=== PATIENT | female | born 1945 | race Caucasian/White ===

== ENCOUNTER 2016-10-20 07:44 | Observation (INO) | payer OTHER ==
[~2016-10-20] VITALS: Ht 165.1 cm; Wt 122.5 kg
[2016-10-20] VITALS (8 sets, daily range): BP systolic 124–144; BP diastolic 47–84
--- NOTE | ~2016-10-20 | P ---
[facility] [place] [address] PROCEDURE REPORT Name: RAYMON MONZON Room #: 213-P [facility] Concepcion Rodriguez#: [id number] Admission: 10/20/16 Attend Phys: Enrique John MD Discharge: 10/22/16 Date of : 49 Report #: [id number] THIS REPORT FOR: //name// CC: Srinivas Lora MD [facility] Enrique John DATE OF SERVICE: 10/21/2016 BRIEF HISTORY: The patient is a 71-year-old woman who had recent cardiovascular intervention last week was stent placed who presents with abdominal pain and chest pain. She has been seen by Dr. Lora and he feels that her pain is GI in origin. It is noted she does use 12-16 ibuprofen per day for back pain. She has not had any bleeding and she is on anticoagulation antiplatelet therapy. PREOPERATIVE DIAGNOSIS: Atypical chest pain with the use of nonsteroidals. POSTOPERATIVE DIAGNOSES: 1. Moderate erosive gastritis, body of the stomach with a small amount of blood. 2. Diffuse erythematous gastritis. 3. Small hiatus hernia. 4. Mild Schatzki ring. MEDICATIONS: Deep sedation with propofol per anesthesia. SPECIMEN: None. ESTIMATED BLOOD LOSS: None. PROCEDURE: EGD. FINDINGS: Prior to deep sedation, procedure of upper endoscopy discussed with the patient as well potential risks and its complications. She indicates she understands and desires to proceed. DESCRIPTION OF PROCEDURE: With the patient in left lateral decubitus position, the Fuji video endoscope was inserted in the cervical esophagus under direct vision without difficulty. Examination of this entire length revealed normal esophageal mucosa down the squamocolumnar junction. At the squamocolumnar junction, intermittently, mild Schatzki ring was seen. The patient denies dysphagia. She is also anticoagulated and so dilation was not proceed today. There is no evidence of Quinones's esophagus ulcerations or mass lesions. Just be on the ring, a small 2 cm sliding type hiatus hernia was seen. Mucosa and hernia was normal. Scope was advanced in the stomach, which was examined on end view as well as retroflexed views. There was diffuse erythema [facility] [address] [place] [address] PROCEDURE REPORT Name: RAYMON MONZON Room #: 213-P [facility] Concepcion Rodriguez#: [id number] Admission: 10/20/16 Attend Phys: Enrique John MD Discharge: 10/22/16 Date of : 49 Report #: [id number] throughout the stomach. Most notably there were long erosive columns in the body of the stomach. True ulcers were not seen. She is anticoagulated. A couple of droplets of red blood was seen, but active bleeding was not seen. No clot exposed vessels were seen. Upon retroflexion, no mass lesions were seen in the cardia. Because of the coagulation, she was not biopsied today. The pylorus was normal. Duodenal bulb was normal. Postbulbar sweep was normal. No ulcers or blood was seen. At that point, the scope was slowly withdrawn and careful circumferential views confirmed the above findings. The patient tolerated the procedure well. DISPOSITION: The patient with atypical pain. I do not see ulcers, but she clearly has erosive changes. Nonsteroidals may be a factor. We will place her on pantoprazole 40 mg daily. I advised her to be conscious with use of nonsteroidals and to seek further evaluation and possible other remedies for management of her back pain. We will obtain serology for H. pylori as well. If she has complaints of dysphagia, she is to return at a later date for dilation. Also noted that LFTs were modestly elevated. We will recheck LFTs and also check and also check an ultrasound of the abdomen. <ELECTRONICALLY SIGNED> By: Jw Wells MD 10/26/16 0806 1135 2248 Jw Wells MD /nt
--- NOTE | ~2016-10-20 | 2DMMODE ---
[facility] [place] [address] 2 D/M-MODE ECHOCARDIOGRAM Name: RAYMON MONZON Room #: 213-P [facility] IN ..#: [id number] Admission: 10/20/16 Attend Phys: Trisha Burris Discharge: Date of : 49 Date of Service: 10/20/16 0944 Report #: [id number] THIS REPORT FOR: //name// Transthoracic Echocardiography Ordering physician: Connie Marcos Referring physician: Srinivas Hernandez Laura L. Room Designer: АННА Robert Indications/History: S/P PCI with STENT, Chest pain. BP: 124 / HR: 57bpm Height: 65in Weight: 271.4lb 52 Study data: M-mode, limited 2D, limited spectral Doppler, and color Doppler. Location: Bedside. Routine. Image quality was good. 2D measurements Normal Normal LVID ED 36-57 IVS ED 6-11 LVID ES 23-40 LVPW ED 6-11 LA volume index 16-28 AoRoot diam ED 21-37 LVOT diameter 18-23 Findings: Left ventricle: The cavity size was normal. Wall thickness was increased in a pattern of moderate LVH. Systolic function was hyperdynamic. The estimated ejection fraction was in the range of 65% to 70%. Wall motion was normal. Right ventricle: The cavity size was at the upper limits of normal. Systolic function was normal. Right atrium: The atrium was dilated. Left atrium: The atrium was dilated. Aortic valve: Trileaflet; mildly thickened, mildly calcified leaflets. Doppler: There was no stenosis. Mitral valve: Structurally normal valve. Doppler: There was no evidence for stenosis. Tricuspid valve: Structurally normal valve. Doppler: There was no evidence for stenosis. Moderate [facility] [address] [place] [address] 2 D/M-MODE ECHOCARDIOGRAM Name: RAYMON MONZON Room #: 213-P [facility] IN Jennifer#: [id number] Admission: 10/20/16 Attend Phys: Trisha Burris Discharge: Date of : 49 Date of Service: 10/20/16 0944 Report #: [id number] regurgitation. Regurgitant peak velocity: 434cm/s. Peak RV-RA gradient: 75mm Hg (S). Pulmonic valve: Structurally normal valve. Doppler: There was no evidence for stenosis. Pericardium: There was no pericardial effusion. Aorta: Aortic root: The aortic root was normal in size. Pulmonary artery: Systolic pressure was estimated to be 85mm Hg. Systemic veins: Inferior vena cava: The vessel was dilated; the respirophasic diameter changes were blunted (< 50%). Conclusions 1. Left ventricle: The cavity size was normal. Wall thickness was increased in a pattern of moderate LVH. Systolic function was hyperdynamic. The estimated ejection fraction was in the range of 65% to 70%. 2. Right ventricle: The cavity size was at the upper limits of normal. 3. Right atrium: The atrium was dilated. 4. Left atrium: The atrium was dilated. 5. Aortic valve: Trileaflet; mildly thickened, mildly calcified leaflets. 6. Tricuspid valve: Structurally normal valve. Moderate regurgitation. 7. Pulmonary arteries: Systolic pressure was estimated to be 85mm Hg. 8. Inferior vena cava: The vessel was dilated; the respirophasic diameter changes were blunted (< 50%). <ELECTRONICALLY SIGNED> By: Rocael Ballard MD 10/20/16 1233 0944 1233 Rocael Ballard MD /rah
--- NOTE | ~2016-10-20 | EKG ---
[address] [place] [address] ELECTROCARDIOGRAM REPORT Name: RAYMON MONZON Room #: 213-P [facility]#: [id number] Admission: 10/20/16 Attend Phys: Enrique John MD Discharge: Date of : 49 Report #: [id number] THIS REPORT FOR: //name// [facility] Test Date: 2016-10-20 Test Time: 09:18:15 Pat Name: RAYMON MONZON Department: Room: 213 Gender: F Boiler Attendant: Lidia GRAHAM : 1945 Requested By: Kalyn Fernandez Order Number: [id number] MD: Isidro Arceo Measurements Intervals [place] Rate: 55 P: 70 MI: 154 QRS: 66 QRSD: 111 T: 69 QT: 471 QTc: 451 Interpretive Statements Sinus rhythm Borderline low voltage, extremity leads Electronically Signed On 10-20-2016 14:33:27 DATABASE ADMINISTRATION ASSOCIATE by Isidro Arceo [email or web address] <ELECTRONICALLY SIGNED> By: Isidro Arceo MD 10/20/16 1433 0918 7 MD AZUL Paul
[~2016-10-20 07:44] MED LIST: ADVAIR 250-501 EACH INH; AGGRENOX CAPSU1 EACH PO; ANALGESIC325 MG PO; APIDRA; ASPIR 8181 MG PO; AVELOX400 MG PO; CARVEDILOL12.5 MG PO; COREG25 MG PO; COUMADIN 10MG T10 M1 PO; COZAAR 50 MG TA50 M2 PO; CRESTOR10 MG PO; DILTIAZEM 24HR180 MG PO; DOXYCYCLINE 10100 MG PO; EXFORGE PO; GLUCOPHAGE XR500 MG PO; GLUCOPHAGE1000 MG PO; HYDROCHLOROTHIA25 M1 PO; INVOKANA300 MG PO; LEVEMIR; NITROSTAT0.4 MG SL; NORVASC5 MG PO; PLAVIX 75 MG TA75 M1 PO; PREDNISONE 10 M10 MG PO; PREDNISONE50 MG PO; SIMVASTATIN40 MG PO; SPIRIVA INH; TOUJEO SOL300 UNIT/1 SQ; VENTOLIN HFA 1818 GM INH; VICTOZA0.6 MG/0.1 SUBQ; VITAMIN B-12500 MCG PO; XARELTO20 MG PO
[2016-10-20 09:22] LABS: ABSOLUTE NEUTROPHILS 8.2 thou/uL (1.4-8.2); BASOPHILS 0.5 % (0.0-2.0); EOSINOPHILS 0.6 % (0.0-3.0); HEMATOCRIT 38.9 % (37.0-47.0); HEMOGLOBIN 12.7 gm/dL (12.0-15.0); LYMPHOCYTES 19.2 % (24.0-44.0); MCH 28.5 pg (26.0-34.0); MCHC 32.7 % (28.0-37.0); MCV 87.3 fL (80.0-100.0); MONOCYTES 9.8 % (1.0-8.0); PLATELET COUNT 195 thou/uL (150-400); POLYS 69.9 % (36.0-66.0); RBC 4.46 mil/uL (4.20-5.00); RDW 15.3 % (10.5-14.5); WBC 11.8 thou/uL (4.0-11.0)
[2016-10-20 09:23] LABS: MANUAL DIFF NO
[2016-10-20 09:33] LABS: CALCIUM 8.6 mg/dL (8.5-10.1); POTASSIUM 3.7 mmol/L (3.5-5.1)
[2016-10-20 09:59] LABS: ALBUMIN 3.3 g/dL (3.4-5.0); DIRECT BILIRUBIN 0.5 mg/dL (<0.1-0.3); TOTAL PROTEIN 5.9 g/dL (6.4-8.2)
[2016-10-21 04:04] VITALS: BP 114/51
[2016-10-21 07:26] VITALS: BP 135/46
[2016-10-21 12:10] LABS: ALBUMIN 2.9 g/dL (3.4-5.0); DIRECT BILIRUBIN 0.2 mg/dL (<0.1-0.3); TOTAL BILIRUBIN 0.8 mg/dL (<0.1-1.0); TOTAL PROTEIN 5.6 g/dL (6.4-8.2)
[2016-10-21 12:30] VITALS: BP 136/49
[2016-10-21 15:48] VITALS: BP 131/52
[2016-10-21 20:20] VITALS: BP 141/70
[2016-10-22 03:12] VITALS: BP 144/58
[2016-10-22] MEDS ORDERED: NEXIUM40 MG PO (08:20)
[2016-10-22 08:25] VITALS: BP 147/53
[2016-10-22 10:25] VITALS: BP 147/53
[2016-10-22 12:01] VITALS: BP 147/53
== END 2016-10-22 12:00 | disposition home or self-care (01) ==
LOC: ICU 07:44 → 2N 08:43 → ICU 08:43 → 2N 12:15
PROVIDERS: Nurse Practitioner; Nurse Practitioner Adult Health; Specialist
DX: I25.709 Atherosclerosis of coronary artery bypass graft(s), unspecified, with unspecified angina pectoris (principal); I10 Essential (primary) hypertension; L76.32 Postprocedural hematoma of skin and subcutaneous tissue following other procedure; R00.1 Bradycardia, unspecified; I48.0 Paroxysmal atrial fibrillation; G45.1 Carotid artery syndrome (hemispheric); I77.89 Other specified disorders of arteries and arterioles; J44.9 Chronic obstructive pulmonary disease, unspecified; E11.8 Type 2 diabetes mellitus with unspecified complications; F17.290 Nicotine dependence, other tobacco product, uncomplicated; E78.5 Hyperlipidemia, unspecified; F17.210 Nicotine dependence, cigarettes, uncomplicated; Z88.6 Allergy status to analgesic agent; Z88.1 Allergy status to other antibiotic agents; Z88.0 Allergy status to penicillin; Z88.8 Allergy status to other drugs, medicaments and biological substances; Z79.2 Long term (current) use of antibiotics; Z79.82 Long term (current) use of aspirin; Z79.899 Other long term (current) drug therapy
CPT/HCPCS: 62110; 62900; 70005

== ENCOUNTER 2018-07-18 04:21 | Inpatient (IN) | payer OTHER ==
[~2018-07-18] VITALS: Ht 160 cm; Wt 118.4 kg
--- NOTE | ~2018-07-18 | EKG ---
[address] [place] [address] ELECTROCARDIOGRAM REPORT Name: VANDANA MONZONRA Jessi Room #: 202-P ADM IN M.R.#: [id number] Admission: 07/18/18 Attend Phys: Carlos Ragsdale Discharge: Date of : 49 Report #: [id number] THIS REPORT FOR: //name// [facility] Test Date: 2018-07-18 Test Time: 07:19:54 Pat Name: RAYMON MONZON Department: Room: 202 P Gender: F Kitchenwhere Maker: DAMIEN : 1945 Requested By: Carlos Ragsdale Order Number: [id number] MD: Bebo Cho Measurements Intervals [place] Rate: 91 P: [place]: QRS: 81 QRSD: 99 T: 45 QT: 368 QTc: 453 Interpretive Statements Atrial fibrillation Ventricular premature complex Poor R wave progression Compared to ECG 10/20/2016 09:18:15 Ventricular premature complex(es) now present Atrial fibrillation has replaced sinus rhythm Electronically Signed On 07-19-2018 7:59:31 MOLD BREAKER by Bebo Cho [email or web address] <ELECTRONICALLY SIGNED> By: Bebo Cho MD, [facility] 07/19/18 0759 8 8 Bebo Cho MD, [facility] /EPI
--- NOTE | ~2018-07-18 | 2DMMODE ---
[facility] [address] [place] [address] 2 D/M-MODE ECHOCARDIOGRAM Name: RAYMON MONZON Room #: 202-P ADM IN M.R.#: [id number] Admission: 07/18/18 Attend Phys: Carlos Rosa Discharge: Date of : 49 Date of Service: 07/19/18 1029 Report #: [id number] THIS REPORT FOR: //name// APPROVED REPORT Study performed: 07/19/2018 09:36:25 EXAM: Comprehensive 2D, Doppler, and color-flow Echocardiogram Patient Location: Echo lab Room #: 202 Status: routine BSA: 2.17 HR: 90 bpm BP: 113/94 mmHg Rhythm: Atrial Fibrillation Other Information Study Quality: Good Indications Chest pain. Hx: Afib, CAD, stent, COPD, DM, obesity. 2D Dimensions RVDd: 35.83 mm IVSd: 14.08 (7-11mm) LVOT Diam: 20.29 (18-24mm) LVDd: 48.05 mm PWd: 12.59 (7-11mm) Ascending Ao: 31.12 (22-36mm) LVDs: 32.30 (25-40mm) Aortic Root: 29.36 mm Volumes Left Atrial Volume (Systole) Single Plane 4CH: 110.54 mL Single Plane 2CH: 94.83 mL LA ESV Index: 52.00 mL/m2 Aortic Valve AoV Peak Jay.: 1.16 m/s AO Peak Gr.: 5.42 mmHg LVOT Max P.08 mmHg LVOT Max V: 0.72 m/s MARIA ESTHER Vmax: 1.99 cm2 Mitral Valve MV Decel. Time: 153.12 ms MV E Max Jay.: 1.18 m/s [facility] [address] [place] [address] 2 D/M-MODE ECHOCARDIOGRAM Name: RAYMON MOZNON Room #: 202-P [facility] IN [facility].#: [id number] Admission: 07/18/18 Attend Phys: Carlos Rosa Discharge: Date of : 49 Date of Service: 07/19/18 1029 Report #: [id number] Pulmonary Valve PV Peak Jay.: 0.91 m/s PV Peak Gr.: 3.40 mmHg Tricuspid Valve TR Peak Jay.: 3.38 m/s RAP Estimate: 10.00 mmHg TR Peak Gr.: 45.80 mmHg PA Pressure: 56.00 mmHg Left Ventricle The left ventricle is normal size. There is normal LV segmental wall motion. Moderate concentric left ventricular hypertrophy. Left ventricular systolic function is normal. LVEF is 55-60% This study is not technically sufficient to allow evaluation of the LV diastolic function due to atrial fibrillation. Right Ventricle The right ventricle is normal size. The right ventricular systolic function is normal. Atria Left atrium is severely dilated. Right atrium is moderately dilated. Aortic Valve The Aortic valve is mildly sclerotic. No aortic regurgitation is present. There is no aortic valvular stenosis. Mitral Valve The mitral valve is normal in structure. Moderate mitral annular calcification. Trace to mild mitral regurgitation. No evidence of mitral valve stenosis. Tricuspid Valve The tricuspid valve is normal in structure. Moderate tricuspid regurgitation. Estimated PAP is 55-60mmHg. Pulmonic Valve The pulmonary valve is normal in structure. Trace pulmonic regurgitation. Great Vessels The aortic root is normal in size. The ascending aorta is normal in size. IVC is dilated and collapses >50% with inspiration. Pericardium [facility] [address] [place] [address] 2 D/M-MODE ECHOCARDIOGRAM Name: VANDANA MONZONRA Bowen Room #: 202-P [facility] IN M.R.#: [id number] Admission: 07/18/18 Attend Phys: Carlos Rosa Discharge: Date of : 49 Date of Service: 07/19/18 1029 Report #: [id number] Small amount of pericardial fluid noted posterior and anterioryly. <Conclusion> The left ventricle is normal size. Moderate concentric left ventricular hypertrophy. LVEF is 55-60% This study is not technically sufficient to allow evaluation of the LV diastolic function due to atrial fibrillation. Left atrium is severely dilated. Right atrium is moderately dilated. The Aortic valve is mildly sclerotic. There is no aortic valvular stenosis. The mitral valve is normal in structure. Moderate mitral annular calcification. Trace to mild mitral regurgitation. Moderate tricuspid regurgitation. Estimated PAP is 55-60mmHg. The aortic root is normal in size. Small amount of pericardial fluid noted posterior and anterioryly. <ELECTRONICALLY SIGNED> By: Dav Lora MD, FACC 07/19/18 1029 1029 1029 Dav Lora MD, FACC /INF
--- NOTE | ~2018-07-18 | HC ---
[facility] [place] [address] CONSULTATION Name: RAYMON MONZON Room #: 202-P ADM IN M.R.#: [id number] Admission: 07/18/18 Attend Phys: Carlos Ragsdale Discharge: Date of : 49 Report #: [id number] THIS REPORT FOR: //name// CC: Srinivas Quinterois Carlos Ragsdale DATE OF SERVICE: 07/18/2018 INDICATION: Chest pain. HISTORY OF PRESENT ILLNESS: This is a 73-year-old female followed by Dr. Lora with a history of coronary artery disease with stent placement. Her last stent was in 2017 with placement in the diagonal artery. She also has a history of permanent atrial fibrillation, COPD, tobacco use, obesity, diabetes mellitus, CVA and general debility. She describes waking up with pain in the upper abdomen that radiated up to the chest and neck area. She denies any shortness of breath, fevers or nausea. She went to the ER at [facility] Emergency Room. There was a question of ventricular fibrillation, in reviewing the records, this is artifact. She was subsequently transferred to [facility] for further care. The whole episode of her pain lasted for several hours. The initial troponin level is negative. There is no history of diarrhea or dysuria. PAST MEDICAL HISTORY: Coronary artery disease with stent placement to the right coronary artery and left anterior descending remotely, most recently with stent to the diagonal artery. History of renal artery stenosis. Diabetes mellitus, obesity, CVA, atrial fibrillation, COPD, tobacco use. ALLERGIES: INCLUDE ADENOSINE, CEFUROXIME, PENICILLIN. HOME MEDICATIONS: Include Coreg, Crestor, hydrochlorothiazide, aspirin, amlodipine, losartan, Eliquis 5 mg twice a day, inhalers, insulin. SOCIAL HISTORY: Smokes 1 pack of cigarettes per day. FAMILY HISTORY: Negative for premature CAD. REVIEW OF SYSTEMS: A full 10-point review of systems performed. Only the pertinent positives and negatives are described in the HPI. PHYSICAL EXAMINATION: VITAL SIGNS: Blood pressure is 139/68, heart rate is 90 beats per minute. GENERAL APPEARANCE: An overweight female, in no acute distress. HEENT: Normocephalic, atraumatic. Oral mucosa moist. NECK: Supple. LUNGS: Diminished breath sounds diffusely. [address] [address] CONSULTATION Name: RAYMON MONZON Room #: 202-P [facility] IN M.R.#: [id number] Admission: 07/18/18 Attend Phys: Carlos Ragsdale Discharge: Date of : 49 Report #: [id number] CARDIAC: Irregularly irregular, S1, S2 positive. ABDOMEN: Protuberant, soft, nontender. EXTREMITIES: No cyanosis. Positive edema. ECG reveals atrial fibrillation, rate controlled, PVCs, no acute ST segment changes. LABORATORY VALUES: Troponin is negative. White count 6.7, hemoglobin 16.7, creatinine 0.7. ASSESSMENT AND PLAN: 1. Chest pain syndrome, the cause of her pain may be related to a gastrointestinal source. The initial troponin level is negative. Will need serial troponin levels checked. Will need a proton pump inhibitor. 2. Coronary artery disease/stent placement, continue with aspirin. 3. Atrial fibrillation, stable with rate control and continue with Eliquis. 4. Chronic obstructive pulmonary disease, ongoing tobacco use, she does not use oxygen at home. Recommended complete smoking cessation. 5. Hypertension, continue with medications. 6. Hypercholesterolemia, continue with statin therapy. <ELECTRONICALLY SIGNED> By: Romeo Orr MD 07/18/18 1518 1031 1320 Romeo Orr MD /nt
--- NOTE | ~2018-07-18 | EKG ---
[address] [address] ELECTROCARDIOGRAM REPORT Name: RAYMON MONZON Room #: 202-P ADM IN M.R.#: [id number] Admission: 07/18/18 Attend Phys: Carlos Ragsdale Discharge: Date of : 49 Report #: [id number] THIS REPORT FOR: //name// [facility] Test Date: 2018-07-20 Test Time: 07:27:44 Pat Name: RAYMON MONZON Department: Room: 202 P Gender: F Breaker Table Worker: FABIO : 1945 Requested By: Carlos Ragsdale Order Number: [id number] MD: Bebo Cho Measurements Intervals [place] Rate: 103 P: [place]: QRS: 90 QRSD: 98 T: 54 QT: 408 QTc: 534 Interpretive Statements Atrial fibrillation Anterior infarct, old Prolonged QT interval Compared to ECG 07/18/2018 07:19:54 Ventricular premature complex(es) no longer present Electronically Signed On 07-20-2018 7:50:57 LAY OUT MAKER by Bebo Cho [email or web address] <ELECTRONICALLY SIGNED> By: Bebo Cho MD, [facility] 07/20/18 0750 6 6 Bebo Cho MD, [facility] /EPI
[~2018-07-18 04:21] MED LIST changes: +NEXIUM40 MG PO
[2018-07-18 05:18] VITALS: BP 139/68
[2018-07-18] MEDS ORDERED: ELIQUIS5 MG PO (07:22)
[2018-07-18] MEDS ORDERED: FARXIGA10 MG PO (07:22)
[2018-07-18] MEDS ORDERED: DIOVAN160 MG PO (07:23)
[2018-07-18] MEDS ORDERED: HYDRALAZINE 2525 MG PO (07:23)
[2018-07-18 08:11] LABS: HEMATOCRIT 48.9 % (37.0-47.0); HEMOGLOBIN 16.7 gm/dL (12.0-15.0); MCHC 34.1 g/dL (28.0-37.0); RBC 5.37 mil/uL (4.20-5.00); RDW 14.5 % (10.5-14.5); WBC 6.7 thou/uL (4.0-11.0)
[2018-07-18 08:21] LABS: ANION GAP 7 mmol/L (7-16); BUN 21 mg/dL (7-18); CALCIUM 9.2 mg/dL (8.5-10.1); CHLORIDE 103 mmol/L (98-107); CO2 29 mmol/L (21-32); CREATININE 0.7 mg/dL (0.6-1.0); GLUCOSE 414 mg/dL (74-106); POTASSIUM 4.2 mmol/L (3.5-5.1); SODIUM 139 mmol/L (136-145)
[2018-07-18 08:30] LABS: TROPONIN-I <0.06 ng/mL (<0.06)
[2018-07-18 09:25] LABS: CHOLESTEROL 104 mg/dL (<200); HDL CHOLESTEROL 37 mg/dL (>40); LDL CHOLESTEROL 44 mg/dL (<100); TC:HDL 2.8 Ratio (Not establshd); TRIGLYCERIDE 116 mg/dL (<150); VLDL 23 mg/dL (<40)
[2018-07-18 09:36] LABS: FOLIC ACID 10.2 ng/mL (8.6-58.9); TSH 1.715 uIU/mL (0.358-3.740)
[2018-07-18 10:10] LABS: BE(vivo) -3.2 mmol/L (-2 to +3); HCO3 23.3 mmol/L (22.0-26.0); PCO2 46.7 mmHg (35.0-45.0); PO2 93.4 mmHg (80.0-100.0); pH 7.316 (7.360-7.450); sO2 96.5 % (92.0-98.0)
[2018-07-18 11:31] VITALS: BP 148/53
[2018-07-18 14:45] VITALS: BP 119/66
[2018-07-18 19:37] VITALS: BP 128/56
[2018-07-18 23:31] VITALS: BP 142/62
[2018-07-19 00:05] LABS: GLYCOHEMOGLOBIN (HGB A1C) 13.5 % (4.8-5.6)
[2018-07-19 03:41] VITALS: BP 109/51
[2018-07-19 04:35] LABS: ALBUMIN 3.1 g/dL (3.4-5.0); ANION GAP 6 mmol/L (7-16); BUN 17 mg/dL (7-18); CALCIUM 8.9 mg/dL (8.5-10.1); CHLORIDE 103 mmol/L (98-107); CO2 31 mmol/L (21-32); CREATININE 0.5 mg/dL (0.6-1.0); GLUCOSE 193 mg/dL (74-106); PHOSPHORUS 3.5 mg/dL (2.5-4.9); POTASSIUM 4.1 mmol/L (3.5-5.1); SODIUM 140 mmol/L (136-145); TROPONIN-I <0.06 ng/mL (<0.06)
[2018-07-19 07:16] VITALS: BP 113/94
[2018-07-19 11:45] VITALS: BP 138/68
[2018-07-19 15:25] VITALS: BP 135/67
[2018-07-19 19:44] VITALS: BP 119/66
[2018-07-20 04:03] LABS: CALCIUM 8.5 mg/dL (8.5-10.1); CREATININE 0.6 mg/dL (0.6-1.0); POTASSIUM 4.2 mmol/L (3.5-5.1)
[2018-07-20 04:28] VITALS: BP 149/79
[2018-07-20 08:34] VITALS: BP 126/104
[2018-07-20] MEDS ORDERED: METOPROLOL SUCC50 MG PO (08:44)
[2018-07-20 10:21] VITALS: BP 126/104
== END 2018-07-20 14:25 | disposition home or self-care (01) | DRG 313 ==
LOC: 2N 04:21 → ENTRNSPT 07-20 13:54 → EDTRNSPTSTS 07-20 13:58 → 2N 07-20 14:25
PROVIDERS: Hospitalist
DX: R07.89 Other chest pain (principal); Z68.42 Body mass index [BMI] 45.0-49.9, adult; I48.91 Unspecified atrial fibrillation; I25.10 Atherosclerotic heart disease of native coronary artery without angina pectoris; E66.9 Obesity, unspecified; I10 Essential (primary) hypertension; F17.210 Nicotine dependence, cigarettes, uncomplicated; G47.33 Obstructive sleep apnea (adult) (pediatric); E78.00 Pure hypercholesterolemia, unspecified; E78.5 Hyperlipidemia, unspecified; J44.9 Chronic obstructive pulmonary disease, unspecified; E11.9 Type 2 diabetes mellitus without complications; Z86.73 Personal history of transient ischemic attack (TIA), and cerebral infarction without residual deficits; Z95.5 Presence of coronary angioplasty implant and graft; Z88.0 Allergy status to penicillin; Z88.1 Allergy status to other antibiotic agents; Z79.84 Long term (current) use of oral hypoglycemic drugs; Z79.4 Long term (current) use of insulin; Z79.82 Long term (current) use of aspirin; Z88.8 Allergy status to other drugs, medicaments and biological substances; Z90.710 Acquired absence of both cervix and uterus; Z90.49 Acquired absence of other specified parts of digestive tract
CPT/HCPCS: 10081

== ENCOUNTER 2018-08-03 06:33 | Observation (INO) | payer OTHER ==
[~2018-08-03] VITALS: Ht 160 cm; Wt 124.6 kg
--- NOTE | ~2018-08-03 | EKG ---
[address] [address] ELECTROCARDIOGRAM REPORT Name: RAYMON MNOZON Room #: 219-[facility] M.R.#: [id number] Admission: 08/03/18 Attend Phys: Dav Lora MD, Discharge: Date of : 49 Report #: [id number] THIS REPORT FOR: //name// [facility] Test Date: 2018-08-03 Test Time: 13:49:43 Pat Name: RAYMON MONZON Department: Room: 219 P Gender: F Staff Registered Nurse: BS : 1945 Requested By: Dav Lora Order Number: [id number] MD: Bebo Cho Measurements Intervals [place] Rate: 85 P: MN: QRS: 62 QRSD: 100 T: QT: 397 QTc: 472 Interpretive Statements Atrial fibrillation Anterior infarct, old Nonspecific ST and T wave abnormality Compared to ECG 07/20/2018 07:27:44 No significant change was found Electronically Signed On 08-04-2018 8:42:01 BLENDER CONVEYOR OPERATOR by Bebo Cho [email or web address] <ELECTRONICALLY SIGNED> By: Bebo Cho MD, [facility] 08/04/18 0842 1349 Bebo Cho MD, [facility] /EPI
--- NOTE | ~2018-08-03 | EKG ---
[address] [address] ELECTROCARDIOGRAM REPORT Name: RAYMON MONZON Room #: 219-P [facility].R.#: [id number] Admission: 08/03/18 Attend Phys: Dav Lora MD, Discharge: Date of : 49 Report #: [id number] THIS REPORT FOR: //name// [facility] Test Date: 2018-08-03 Test Time: 12:13:49 Pat Name: RAYMON MONZON Department: Room: 219 Gender: F Transportation Director: YOLY : 1945 Requested By: Dav Lora Order Number: [id number] MD: Bebo Cho Measurements Intervals [place] Rate: 103 P: [place]: QRS: 83 QRSD: 109 T: -49 QT: 360 QTc: 471 Interpretive Statements Atrial fibrillation Anterior infarct, old Borderline repolarization abnormality Baseline wander in lead(s) V3 Compared to ECG 07/20/2018 07:27:44 No significant change was found Electronically Signed On 08-04-2018 8:40:29 SIGN BUILDER by Bebo Cho [email or web address] <ELECTRONICALLY SIGNED> By: Bebo Cho MD, [facility] 08/04/18 0840 1213 1213 Bebo Cho MD, [facility] /EPI
--- NOTE | ~2018-08-03 | EKG ---
[address] [address] ELECTROCARDIOGRAM REPORT Name: RAYMON MONZON Room #: 219-[facility] M.R.#: [id number] Admission: 08/03/18 Attend Phys: Dav Lora MD, Discharge: Date of : 49 Report #: [id number] THIS REPORT FOR: //name// [facility] Test Date: 2018-08-04 Test Time: 07:45:02 Pat Name: RAYMON MONZON Department: Room: 219 P Gender: F Wrapper Stemmer Operator: : 1945 Requested By: Luz Maria Rodrigues Order Number: [id number] MD: Bebo Cho Measurements Intervals [place] Rate: 88 P: [place]: QRS: 92 QRSD: 97 T: 10 QT: 383 QTc: 464 Interpretive Statements Atrial fibrillation Right axis deviation Poor R wave progression Compared to ECG 07/20/2018 07:27:44 Right-axis deviation now present Electronically Signed On 08-04-2018 8:49:59 FINANCIAL RETIREMENT PLAN SPECIALIST by Bebo Cho [email or web address] <ELECTRONICALLY SIGNED> By: Bebo Cho MD, [facility] 08/04/18 0849 4 Bebo Cho MD, [facility] /EPI
--- NOTE | ~2018-08-03 | CATHLAB ---
[facility] [address] [place] [address] INVASIVE PROCEDURE REPORT Name: RAYMON MONZON Room #: 219-P [facility] IN ..#: [id number] Admission: 08/03/18 Attend Phys: Dav Lora, Discharge: 08/04/18 Date of : 49 Date of Service: 08/04/18 1509 Report #: [id number] THIS REPORT FOR: //name// APPROVED REPORT Study performed: 08/03/2018 08:50:15 Patient Details Patient Status: Out-Patient Room #: The patient is a 73 year-old female Event Personnel Dav Lora Supervisor Spring Up, Carlos Enrique Tracy RN RN, Sarah Mora Sandifer, David Monitor Procedures Performed Art Access - R femoral artery* Left Heart Cath w/or w/o Coronaries [id number] [facility] Renal Bilateral Peripheral Angiography [id number] CVRENALBIL MEL Place w/wo Plasty Single CIRC [id number] 84688 Initial Mod Sed Same Phys/QHP Gr5y 837600 46613 Mod Sed Same Phys/QHP Ea 293426 Hemostasis w/ Mynx Indication Chest pain Procedure Narrative The Right Groin^ was infiltrated with 1% Lidocaine subcutaneous anesthesia. A PINNACLE 6FR Sheath #[id number] sheath was inserted into the RFA^. Coronary angiography was performed using coronary diagnostic catheters. The right coronary system was accessed and visualized with a JR4 catheter. The left coronary system was accessed and visualized with a JL4 catheter. The left ventricle was accessed and visualized with a PIGTAIL catheter. Left ventriculogram was performed in 30 degree projection. Hemostasis was obtained with manual pressure following sheath removal without any complications. The patient tolerated the procedure well and there were no complications associated with the procedure. There was no hematoma. Intraoperative Conscious Sedation Sedation start time: 09:24 Case end Time: 10:03 Fentanyl 100 mcg Versed 1 mg Fluoro Time: 6.47 minutes [facility] [place] [address] INVASIVE PROCEDURE REPORT Name: RAYMON MONZON Room #: 219-P [facility] IN .R.#: [id number] Admission: 08/03/18 Attend Phys: Dav Lora, Discharge: 08/04/18 Date of : 49 Date of Service: 08/04/18 1509 Report #: [id number] Dose: DAP 9688.29 cGycm2 1296 mGy Contrast Type and Amount: Omnipaque 165 ml Hemodynamics The aortic pressure is 198/80 mmHg with a mean of 125 mmHg. The left ventricular pressure is 173/17 mmHg with a mean of mmHg. PCI Technique Lesion Percutaneous coronary intervention was performed on the mid circumflex artery segment. A Luge Wire .014 x 182CM #[id number] Guide Catheter was used to engage the ostium. A LAUNCHER 6FR EBU 3.5 #[id number] Interventional Guidewire was used to cross the lesion. BALLOON DILATION A Balloon catheter Sprinter OTW 2.5 x 12 #[id number] was inserted and inflated up to 8.00atm for 19seconds. STENT DEPLOYMENT A drug-eluting stent RESOLUTE RAUL OTW 2.5 X 12 #[id number] was inserted and inflated up to 10.00atm for 22seconds. Additional Inflation: 14.00atm for 20seconds. Conclusion #1 successful PTCA stent of the mid circumflex nondominant vessel 99% to 0% lesion with a 2.5 x 12 Raul drug-eluting stent postdilated 2.6 mm JACKSON grade 3 flow #2 left main long free of disease giving rise to LAD and circumflex #3 LAD is eccentric having a scaly is in the mid vessel of 70-75% filling to diffusely diseased smaller LAD this is minimally progressed. Will follow and treat this medically currently. #4 diagonal system just off of the LAD prior to the LAD stenosis previously placed stent is widely patent mild disease #5 dominant right coronary artery with an eccentric distal lesion of 50% giving rise to PDA and FOREST. Large posterior lateral branch has an eccentric 50% lesion smaller diffusely disease PDA #6 large single right renal artery with an eccentric 60-70% ostial lesion will follow this noninvasively and clinically #7 left renal artery with a 2030% ostial narrowing #8 normal left ventricular size and systolic function EF 60% Regulations and plan: Continue aggressive risk factor modification dual antiplatelet therapy to continue at least one year. We will follow renal artery stenosis renal Doppler [facility] [address] [place] [address] INVASIVE PROCEDURE REPORT Name: RAYMON MONZON Room #: 219-P [facility] IN M.R.#: [id number] Admission: 08/03/18 Attend Phys: Dav Lora, Discharge: 08/04/18 Date of : 49 Date of Service: 08/04/18 1509 Report #: [id number] Transfer to CCU in stable condition follow post coronary stent protocol <ELECTRONICALLY SIGNED> By: Dav Lora MD, FACC 08/04/18 1509 1509 1509 Dav Lora MD, FACC /INF
--- NOTE | ~2018-08-03 | D ---
[facility] [place] [address] DISCHARGE SUMMARY Name: RAYMON MONZON Room #: 219-P [facility] Concepcion M.RRadha#: [id number] Admission: 08/03/18 Attend Phys: Dav Lora MD, Discharge: 08/04/18 Date of : 49 Report #: [id number] THIS REPORT FOR: //name// CC: Srinivas Hernandez DO [facility] COURSE: The patient is a 73-year-old female admitted with accelerating angina and an abnormal nuclear stress test. She has had prior LAD stent placed, but there was inferolateral ischemia. Subsequently, found to have a high grade mid circumflex lesion proximal to the bifurcation of 2 OM branches, 98% to 0% with a 2.5 x 12 Peng drug-eluting stent, postdilated to 2.8 mm. There was a 50% posterolateral branch off the dominant right and a 60% mid LAD diagonal lesion. The old stent was okay in the diagonal branch. LV function was preserved. She will be discharged to home. Laboratory work is unremarkable. She has permanent AFib on chronic anticoagulation, so I will opt for clopidogrel and Eliquis only. I will avoid DAPT for some reason recommendations, this is acceptable due to bleeding risk here. Albuterol, apixaban 5 b.i.d., Farxiga 10 mg a day, metformin 500 b.i.d., metoprolol 50, rosuvastatin 20, hydralazine 25, insulin, losartan 100/25 and clopidogrel 75. No lifting for 48 hours or lying in tub, Jacuzzi or florez for a week. No MRI or dental work for 3 months. DISCHARGE DIAGNOSES: 1. Coronary artery disease, successful percutaneous transluminal coronary angioplasty stent of the circumflex to obtuse marginal with a drug-eluting stent as stated above. 2. Hypertension. 3. Hypercholesterolemia. 4. Diabetes. FOLLOWUP: Followup is arranged for 3 months. Thank you for allowing me to assist in the care of this patient. <ELECTRONICALLY SIGNED> By: Dav Lora MD, FACC 08/09/18 1131 1029 1049 Dav Lora MD, FACC /nt
[~2018-08-03 06:33] MED LIST changes: +DIOVAN160 MG PO; +ELIQUIS5 MG PO; +FARXIGA10 MG PO; +HYDRALAZINE 2525 MG PO; +METOPROLOL SUCC50 MG PO
[2018-08-03 07:24] VITALS: BP 145/73
[2018-08-03] MEDS ORDERED: GLUCOPHAGE XR500 MG PO (07:34)
[2018-08-03] MEDS ORDERED: TOPROL XL25 MG PO (07:35)
[2018-08-03] MEDS ORDERED: HYDRALAZINE 2525 MG PO (07:37)
[2018-08-03] MEDS ORDERED: CRESTOR20 MG PO (07:37)
[2018-08-03] MEDS ORDERED: TRESIBA FL100 UNIT/1 SUBQ (07:38)
[2018-08-03] MEDS ORDERED: NOVOLOG100 UNIT/1 SUBQ (07:38)
[2018-08-03] MEDS ORDERED: LOSARTAN-HCTZ1 EAC1 PO (07:39)
[2018-08-03 13:15] VITALS: BP 99/70
[2018-08-03 17:25] VITALS: BP 120/49
[2018-08-03 19:55] VITALS: BP 107/47
[2018-08-04 00:16] VITALS: BP 138/57
[2018-08-04 04:20] LABS: HEMATOCRIT 49.2 % (37.0-47.0); HEMOGLOBIN 16.4 gm/dL (12.0-15.0); MCH 30.4 pg (26.0-34.0); MCHC 33.3 g/dL (28.0-37.0); RBC 5.41 mil/uL (4.20-5.00); RDW 14.6 % (10.5-14.5); WBC 7.6 thou/uL (4.0-11.0)
[2018-08-04 04:30] LABS: CALCIUM 8.4 mg/dL (8.5-10.1); CREATININE 0.7 mg/dL (0.6-1.0); POTASSIUM 3.9 mmol/L (3.5-5.1)
[2018-08-04 04:44] VITALS: BP 131/54
[2018-08-04 04:46] LABS: TROPONIN-I 0.21 ng/mL (<0.06)
[2018-08-04 07:45] VITALS: BP 155/79
[2018-08-04 11:29] VITALS: BP 131/54
[2018-08-04] MEDS ORDERED: PLAVIX 75 MG TA75 M1 PO (11:54)
== END 2018-08-04 12:40 | disposition home or self-care (01) ==
LOC: CATH 06:33 → 2N 09:38 → CATH 10:02 → 2N 08-04 12:40
PROVIDERS: Nurse Practitioner Gerontology
DX: I25.10 Atherosclerotic heart disease of native coronary artery without angina pectoris (principal); E11.9 Type 2 diabetes mellitus without complications; I10 Essential (primary) hypertension; E78.00 Pure hypercholesterolemia, unspecified; Z79.899 Other long term (current) drug therapy; Z79.4 Long term (current) use of insulin

== ENCOUNTER 2019-12-27 15:33 | Inpatient (IN) | payer OTHER ==
[~2019-12-27] VITALS: Ht 152.4 cm; Wt 120.0 kg
[~2019-12-27 15:33] MED LIST changes: +CRESTOR20 MG PO; +LOSARTAN-HCTZ1 EAC1 PO; +NOVOLOG100 UNIT/1 SUBQ; +TOPROL XL25 MG PO; +TRESIBA FL100 UNIT/1 SUBQ
[2019-12-27 15:58] VITALS: BP 129/104
[2019-12-27 16:35] LABS: BASOPHILS 0.8 % (0.0-2.0); EOSINOPHILS 0.8 % (0.0-3.0); HEMATOCRIT 51.6 % (37.0-47.0); HEMOGLOBIN 17.3 gm/dL (12.0-15.0); LYMPHOCYTES 20.7 % (24.0-44.0); MCH 29.5 pg (26.0-34.0); MCHC 33.6 g/dL (28.0-37.0); MCV 87.9 fL (80.0-100.0); MONOCYTES 9.4 % (1.0-8.0); PLATELET COUNT 185 thou/uL (150-400); POLYS 68.3 % (36.0-66.0); RBC 5.87 mil/uL (4.20-5.00); RDW 16.5 % (10.5-14.5); WBC 7.4 thou/uL (4.0-11.0)
[2019-12-27 16:48] LABS: URINE BLOOD NEGATIVE (Negative); URINE COLOR YELLOW; URINE GLUCOSE-RANDOM* 2+ (Negative); URINE KETONES 2+ (Negative); URINE LEUKOCYTES-REFLEX NEGATIVE (Negative); URINE NITRITE-REFLEX NEGATIVE (Negative); URINE PROTEIN (DIPSTICK) TRACE (Negative)
[2019-12-27] MEDS ORDERED: NEXIUM40 MG PO (16:48)
[2019-12-27] MEDS ORDERED: CARTIA XT120 M1 PO (16:48)
[2019-12-27] MEDS ORDERED: VALSARTAN-HCTZ1 EAC2 PO (16:48)
[2019-12-27 16:51] LABS: URINE CLARITY HAZY
[2019-12-27 16:52] LABS: ICTOTEST (BILI CONFIRMATORY) Negative (Negative); URINE BILIRUBIN NEGATIVE (Negative)
[2019-12-27 16:59] LABS: ALBUMIN 3.4 g/dL (3.4-5.0); CALCIUM 9.8 mg/dL (8.5-10.1); CREATININE 1.1 mg/dL (0.6-1.0); TOTAL BILIRUBIN 0.8 mg/dL (<0.1-1.0); TOTAL PROTEIN 7.3 g/dL (6.4-8.2)
[2019-12-27 17:02] LABS: POTASSIUM 2.7 mmol/L (3.5-5.1)
[2019-12-27 19:31] VITALS: BP 145/56
--- NOTE | 2019-12-27 19:37 | NUR ---
ED NURSE CALLED 2N TO GIVE REPORT AND WAS TOLD THE NURSE WILL CALL BACK IN 5 MINUTES
--- NOTE | 2019-12-27 19:51 | NUR ---
SECOND ATTEMPT BY ED RN TO CALL REPORT TO INPATIENT NURSE, WAS TOLD THE NURSE IS FINISHING UP IN A ROOM AND WILL CALL BACK IN A FEW MINUTES
[2019-12-27 20:30] LABS: CALCIUM 9.1 mg/dL (8.5-10.1); MAGNESIUM 1.6 mg/dL (1.8-2.4)
[2019-12-27 20:36] LABS: CHOLESTEROL 125 mg/dL (<200); HDL CHOLESTEROL 31 mg/dL (>40); LDL CHOLESTEROL 53 mg/dL (<100); TRIGLYCERIDE 207 mg/dL (<150); VLDL 41 mg/dL (<40)
[2019-12-27 20:45] LABS: SERUM ASSESSMENT Clear
[2019-12-27 23:37] VITALS: BP 107/56
[2019-12-28 05:15] VITALS: BP 123/57
--- NOTE | 2019-12-28 06:59 | NUR ---
PATIENTS CARES WERE ASSUMED AFTER SHE WAS DELIVERED TO THE FLOOR. PATIENT WAS ASSESSED AND MED WERE PASSED. PATIENT WAS GIVEN ONE DOSE OF MORPHINE FOR PAIN THAT SHE RATED 7/10 IN HER ABDOMINAL AREA. SHE WAS ALSO GIVEN ZOFRAN AT THE SAME TIME. HOURLY ROUNDS WERE DONE. THE BED IS IN A LOW AND LOCKED POSITION.
[2019-12-28 07:35] VITALS: BP 120/52
[2019-12-28 08:26] LABS: CALCIUM 8.6 mg/dL (8.5-10.1); CREATININE 0.7 mg/dL (0.6-1.0); MAGNESIUM 2.4 mg/dL (1.8-2.4); POTASSIUM 3.6 mmol/L (3.5-5.1)
[2019-12-28 11:00] VITALS: BP 131/75
--- NOTE | 2019-12-28 12:57 | NUR ---
CONSULT [id number] WAS COMPLETED BY THIS GRAIN SHIPPER.
--- NOTE | 2019-12-28 14:18 | NUR ---
Spoke with patient via phone. patient resides at home in [place] in independent home. She reports she has a cane and walker as needed at home but not using fire captain. She reports PCP is Dr Srinivas Hernandez in [place]. She was driving fire captain. She has a s/o who is able to assist at dc if needed. Patient reports feeling very weak. Therapy evals ordered.
--- NOTE | 2019-12-28 15:53 | NUR ---
ASSUMED CARE PT SHIFT CHANGE. ASSESSMENT CHARTED.MEDS GIVEN PER NOV. PT ALERT AND ORIENTED.VSS. O2 SATS WNL ON ROOM AIR. DENIES SOB. C/O PAIN IN ABDOMEN, MANAGED WITH IV PAIN MEDS. TOLERATING CLEAR LIQUID DIET WELL. WILL ADVANCE TOLERATED PER ORDERS. PT TO HAVE MESSENTERIC ANGIOGRAM TOMORROW, PT UPDATED. CONSENTS SIGNED. PT CURRENTLY RESTING UP IN CHAIR. CALLS WITH NEEDS. WILL CONTINUE TO MONITOR AND FOLLOW POC.
[2019-12-28 15:56] VITALS: BP 91/40
[2019-12-28 19:15] VITALS: BP 96/50
[2019-12-29] VITALS (8 sets, daily range): BP systolic 89–131; BP diastolic 42–62
[2019-12-29 01:09] LABS: GLYCOHEMOGLOBIN (HGB A1C) 9.8 % (4.8-5.6)
--- NOTE | 2019-12-29 06:48 | NUR ---
PATIENTS CARES WERE ASSUMED AT SHIFT CHANGE. PATIENT WAS ASSESSED AND MEDS WERE PASSED. PATIENTS IVF CONTINUES TO RUN LATE OUT OF THE PHARMACY DEPT. AND IVF AND IVPB ARE LATE AND WILL ATTEMPT TO CALL AGAIN. HOURLY ROUNDS WERE DONE AND THE BED IS IN A LOW AND LOCKED POSITION.
--- NOTE | 2019-12-29 08:56 | NUR ---
ASSUMED CARE OF PT AT SHIFT CHANGE, IV BEEPING, SHE WAS UPSET ABOUT IT 'BEEPING ALL NIGHT', IV IN JOÃO/AC AND ASSURED HER ID WRAP UP SOON SHE CAME BACK FROM HER PROCEDURE. REPORT OF AFIB INTERMITTENTLY, TALKED TO CARDIOLOGY AND THEY SHARED HER HX OF PAROXYSMAL AFIB. GI CAME TO RETRIEVE HER APPROX 0820. SEE SEPARATE INTERVENTIONS FOR ASSESSMENTS. WILL CONTINUE TO MONITOR. ENCOURAGED HER TO USE CALL LIGHT FOR ANY NEEDS. HAS PROCEDURE TOMORROW, NPO AFTER MIDNIGHT.
--- NOTE | 2019-12-29 13:48 | NUR ---
ORDERS FOR EVAL AND TREAT. SPOKE WITH Pt WHO STATES SHE IS NOT HAVING ANY DIFFICULTY WITH HER MOBILITY OR BALANCE. OBSERVED HER STAND AND AMBULATE SAFELY IN HER ROOM. Pt APPEARS SAFE FOR HOME WHENEVER MEDICALLY CLEAR. Pt DECLINING FORMAL P.T. EVAL
--- NOTE | 2019-12-29 15:46 | NUR ---
Pt cleared by therapy for dc home. No hh referral anticipated at this time. Pt will likely dc to home soon. She is going to IR for a procedure tomorrow. Will remain available should dc needs arise.
[2019-12-30] VITALS (16 sets, daily range): BP systolic 94–145; BP diastolic 49–80
--- NOTE | 2019-12-30 05:22 | NUR ---
ASSESSMENT DOCUMENTED.PT BEEN RESTING IN NO ACUTE DISTRESS.A/OX4.VSS.DENIES N/V OR ABD PAIN.NPO SINCE MIDNOC FOR ANGIOGRAM PROCEDURE TODAY.SHOWER THIS AM.IVF PER ORDERS.AFIB CONTROLLED ON THE MONITOR.PT DENIES ANY NEEDS AT THIS TIME.WILL CONT TO MONITOR.
--- NOTE | 2019-12-30 08:00 | NUR ---
SPOKE WITH PATIENT THIS A.M PRIOR TO PROCEDURE, PATIENT UPSET ABOUT SEEING O.T AGAIN AFTER INITIAL EVAL. O.T EDUCATED ON ROLE OF OT IN ACUTE CARE, EXPLAINED HOW PATIENT NEEDED BOOST OFF OF TOILET YESTERDAY. REPORTS SHE HAS RISER AT HOME AND HAS BEEN UP AD LIZZY IN ROOM, ALREADY SHOWERED INDEPENDENTLY. PATIENT ALSO DECLINED FORMAL P.T. EVAL YESTERDAY. PATIENT TO D/C FROM ACUTE OT SERVICES, PLEASE NOTIFY IF ANY CHANGES.
--- NOTE | 2019-12-30 10:21 | HC ---
[facility] [place] [address] CONSULTATION Name: RAYMON MONZON Room #: 206-P [facility] IN M.R.#: [id number] Admission: 12/27/19 Attend Phys: Dieter Isaacs MD Discharge: Date of : 49 Report #: [id number] THIS REPORT FOR: cc: Srinivas Hernandez,Aaron Rushing MD ~ CC: Dieter Hernandez DO DATE OF SERVICE: 12/29/2019 ENDOCRINE CONSULTATION CONSULTING PHYSICIAN: Dr. Isaacs. PRIMARY CARE PHYSICIAN: Dr. Srinivas Hernandez. REASON FOR CONSULTATION: Type 2 diabetes mellitus, uncontrolled hyperglycemia. HISTORY OF PRESENT ILLNESS: This is a 74-year-old female patient whose medical background is significant for multiple medical issues including type 2 diabetes mellitus, hypertension, coronary artery disease, hyperlipidemia, and COPD. The patient presented to the ER due to exacerbation of lingering issues with generalized abdominal pain with nausea and vomiting as well as diarrhea. The patient was admitted for further care and monitoring. The patient has a history of type 2 diabetes mellitus for many years and is maintained on a combination of Farxiga 10 mg daily, Tresiba insulin 60 units daily. The patient acknowledged that she has not been monitoring her blood glucose nearly at all at home and has not had an issue with hypoglycemia as far as she could tell. The patient had a history of cataract in the past, but not diabetic retinopathy, and she has not had much issue with diabetic neuropathy. She is not aware of issues pertaining to chronic kidney disease either. The patient's background is significant for coronary artery disease, status post cardiac stent placement on multiple occasions. She is also known to have hyperlipidemia and is maintained on rosuvastatin 20 mg daily. She has hypertension and is maintained on losartan/hydrochlorothiazide 100/25 mg daily as well as Cartia XT 120 mg daily with reported adequate control. REVIEW OF SYSTEMS: CONSTITUTIONAL: Fatigue, tiredness, but not fever or chills. The patient has lost more than 30 pounds due to her lingering GI problems. HEENT: Negative for sore throat, sinus pain, or ear drainage. PULMONARY: Occasional issues with shortness of breath. The patient has COPD at [address] [address] CONSULTATION Name: RAYMON MONZON Room #: [address] [place] [address] IN M.R.#: [id number] Admission: 12/27/19 Attend Phys: Dieter Isaacs MD Discharge: Date of : 49 Report #: [id number] baseline and intermittent cough, but no hemoptysis. CARDIAC: Significant history of CAD, status post stent placements, occasional palpitations, occasional lower extremity swelling, but no active chest pain or palpitations. GASTROINTESTINAL: Abdominal pain, generalized off and on for the past 8 months associated with bouts of nausea and vomiting. NEUROLOGY: Negative for loss of consciousness, seizure activity or frequent severe headaches. UROLOGY: Negative for dysuria, hematuria, or frequency. PSYCHIATRIC: Negative for delusions or hallucinations. Otherwise, review of systems noncontributory other than those mentioned in HPI. PAST MEDICAL HISTORY: 1. Type 2 diabetes mellitus. 2. Hypertension. 3. Hyperlipidemia. 4. Coronary artery disease, status post stent placements in the LAD and RCA. 5. Chronic obstructive pulmonary disease. 6. Cerebrovascular accident with left-sided weakness. 7. Active tobacco use. 8. Atrial fibrillation. 9. GERD. 10. Obesity. 11. Osteoarthritis. 12. Peripheral arterial disease. PAST SURGICAL HISTORY: 1. Hysterectomy. 2. Cholecystectomy. 3. Tonsillectomy. 4. Tendon repair of the right foot. 5. Left endarterectomy. 6. Right ear surgery. ALLERGIES: ADENOSINE, CEFUROXIME, CYANOCOBALAMIN, LEVOFLOXACIN, AND PENICILLIN. ACTIVE MEDICATIONS: Include Farxiga 10 mg daily, Tresiba 60 units daily, losartan/hydrochlorothiazide 100/25 mg daily, diltiazem 120 mg daily, esomeprazole 40 mg daily, metoprolol 50 mg daily, Eliquis 5 mg b.i.d., and Plavix 75 mg daily. FAMILY HISTORY: Noted for heart disease and strokes. SOCIAL HISTORY: The patient smokes a pack per day. Denies use of alcohol. Has smoked for 50 years. She [place] [address] CONSULTATION Name: RAYMON MONZON Room #: 206-P [facility] IN .R.#: [id number] Admission: 12/27/19 Attend Phys: Dieter Isaacs MD Discharge: Date of : 49 Report #: [id number] PHYSICAL EXAMINATION: GENERAL: Pleasant female patient who is not in apparent pain or distress. VITAL SIGNS: Blood pressure is 122/59 mmHg, heart rate is 80 per minute, respirations 18 per minute, and temperature 36.2 degrees. CONSTITUTIONAL: The patient is sitting upright, appears comfortable, not in apparent distress. HEENT: Anicteric sclerae. Intact extraocular motions. NECK: Supple, without JVD, carotid bruits or lymphadenopathy. I do not appreciate thyromegaly. CHEST: Noted for distant breath sounds with scattered rales and rhonchi. No wheeze or crackles. HEART: Regular rate and rhythm without murmurs or gallops. ABDOMEN: Obese, but soft, slight discomfort on deep palpation. No guarding. Active bowel sounds. EXTREMITIES: Lower extremity exam, +1 ankle edema bilaterally. No skin breaks. Pedal pulses are faint. NEUROLOGIC: Awake, alert and oriented to time, place and person. The remainder of examination is largely nonfocal other than slight left-sided weakness. PSYCHIATRIC: Pleasant, interactive, appropriate. Normal thought process. Normal mood and affect. LABORATORY DATA: Blood glucose values since arrival have ranged between 144 and 249 mg/dL most were below 200 mg/dL. Other than that, sodium 139, potassium 3.6, chloride 101, CO2 of 30, anion gap 8, BUN 19, creatinine 0.7, AST 16, lipase 62, total bilirubin 0.8, direct bilirubin 0.2, calcium 8.6, phosphorus 3.5, magnesium 2.4, alkaline phosphatase 66, ALT 22, total protein 7.3, albumin 3.4, and EGFR 82. Lactic acid 1.6. CPK 45, troponin 0.21. Total cholesterol 125, triglycerides 207, HDL 31, LDL 53. BNP 1046. INR 1.1. White blood count 7.4, hemoglobin 17.3, hematocrit 51.6, and platelets 185. Hemoglobin A1c 9.8%. ASSESSMENT AND PLAN: 1. Type 2 diabetes mellitus. The patient has been under inadequate glycemic control as per her hemoglobin A1c of 9.8%. The patient has been noncompliant in regard to blood glucose monitoring. I counseled the patient at length about the necessity of achieving and maintaining adequate glycemic control so as to avoid diabetic complications especially in the setting of coronary artery disease. The patient demonstrates a pattern of uncontrolled postprandial hyperglycemia and would be an excellent candidate for a GLP-1 analog i.e. Ozempic or Trulicity after she leaves here. Also, she would be a candidate for metformin therapy in addition to Tresiba, which could at that time be tapered down a bit to accommodate a GLP-1 analog and metformin in addition to her ongoing therapy with Farxiga. In the immediate setting, I will add Tradjenta 5 mg to her regimen hoping to [address] [address] CONSULTATION Name: NICOLÁSRAYMON CLAUDIA Room #: 206-P [facility] IN M.R.#: [id number] Admission: 12/27/19 Attend Phys: Dieter Isaacs MD Discharge: Date of : 49 Report #: [id number] gently push her blood glucose values below 180 mg/dL while she is here. If this does not materialized, then I would go on to add rapid acting insulin to cover her meals in the immediate setting, I would maintain the current Lantus dose of 65 units at bedtime in addition to support with Humalog supplemental scale, moderate intensity while we monitor her blood glucose levels a.c. and at bedtime and adjust her regimen accordingly. 2. Hyperlipidemia. The patient is maintained on rosuvastatin therapy as an outpatient and has maintained excellent lipid control as per her measured lipid panel. She is advised to continue with that. 3. Hypertension. The patient's level of blood pressure control on the current combination of metoprolol and losartan is fairly adequate, she is to continue with the same. 4. Abdominal pain. This has been an ongoing issue for the patient over the past several months. An esophagogastroduodenoscopy done earlier revealed nonerosive gastritis and duodenitis with a small hiatal hernia. Her CT scan of the abdomen and pelvis was negative for acute abnormalities. At the present time, the possibility of mesenteric ischemia cannot be ruled out and she is being prepared for a mesenteric angiogram tomorrow. I have reviewed the patient's clinical care notes, laboratory data, and other pertinent clinical information including her non-institutional medical records for over 35 minutes. I certainly appreciate this consultation by Dr. Isaacs and appreciate the opportunity to participate in the care of Dr. Hernandez patient. <ELECTRONICALLY SIGNED> By: Aaron Taylor MD 12/30/19 1021 1530 1617 Aaron Taylor MD /nt
[2019-12-30 15:14] LABS: ABSOLUTE NEUTROPHILS 2.2 thou/uL (1.4-8.2); BASOPHILS 0.8 % (0.0-2.0); EOSINOPHILS 2.4 % (0.0-3.0); HEMATOCRIT 45.4 % (37.0-47.0); LYMPHOCYTES 40.3 % (24.0-44.0); MCH 29.4 pg (26.0-34.0); MCHC 32.5 g/dL (28.0-37.0); MCV 90.6 fL (80.0-100.0); MONOCYTES 7.7 % (1.0-8.0); PLATELET COUNT 149 thou/uL (150-400); POLYS 48.8 % (36.0-66.0); RDW 16.4 % (10.5-14.5); WBC 4.4 thou/uL (4.0-11.0)
[2019-12-30 15:19] LABS: HEMOGLOBIN 14.7 gm/dL (12.0-15.0)
[2019-12-30 15:24] LABS: ALBUMIN 2.7 g/dL (3.4-5.0); CALCIUM 8.4 mg/dL (8.5-10.1); CREATININE 0.7 mg/dL (0.6-1.0); MAGNESIUM 1.6 mg/dL (1.8-2.4); POTASSIUM 3.9 mmol/L (3.5-5.1); TOTAL BILIRUBIN 0.3 mg/dL (<0.1-1.0); TOTAL PROTEIN 5.7 g/dL (6.4-8.2)
--- NOTE | 2019-12-30 16:09 | P ---
[facility] [place] [address] PROCEDURE REPORT Name: RAYMON MONZON Room #: 206-P [facility] IN M.R.#: [id number] Admission: 12/27/19 Attend Phys: Dieter Isaacs MD Discharge: Date of : 49 Report #: [id number] THIS REPORT FOR: cc: Srinivas Hernandez,Jw Kitchen MD ~ CC: Dieter Hernandez DO INPATIENT UPPER ENDOSCOPY NOTE BRIEF HISTORY: The patient is a 74-year-old woman with abdominal pain. She does have diabetes, has early satiety as well. She has had periods of nausea and vomiting. She has also recently experienced a 40-pound weight loss. PREOPERATIVE DIAGNOSES: Abdominal pain, nausea, vomiting and weight loss. POSTOPERATIVE DIAGNOSES: 1. Erythematous gastritis with small amount of bile. 2. Erythematous bulbar duodenitis without ulceration. 3. Intermittently seen sliding type hiatus hernia, 2 cm or less. MEDICATIONS: Deep sedation with propofol per anesthesia. SPECIMEN: None. ESTIMATED BLOOD LOSS: None. PROCEDURE: EGD. FINDINGS: Prior to propofol sedation, procedure of upper endoscopy was reviewed with the patient as well as potential risks and its complications. She indicates she understands and desires to proceed. DESCRIPTION OF PROCEDURE: With the patient in left lateral decubitus position, the Olympus video endoscope was inserted in the cervical esophagus under direct vision without difficulty. Examination of this organ through its entire length revealed normal esophageal mucosa. The squamocolumnar junction was inspected and noted to be unremarkable. In the past, I have seen a Schatzki ring, but none was seen today. Also, intermittently a very small, less than 2 cm sliding type hiatus hernia was seen. The mucosa was unremarkable. The scope was advanced in the stomach, was examined on end view as well as retroflexed views. She does have an erythematous gastritis, which is diffuse, but most notable in the antrum of the stomach. I did an upper endoscopy on her in 10/2016. She had been taking a lot of ibuprofen and had erosive changes at that time. Erosive changes were not seen today. No ulcers were seen. She does have diabetes and [facility] [address] [place] [address] PROCEDURE REPORT Name: RAYMON MONZON Room #: [address] [place] [address] IN M.R.#: [id number] Admission: 12/27/19 Attend Phys: Dieter Isaacs MD Discharge: Date of : 49 Report #: [id number] early satiety as well as nausea and vomiting, but no retained solids or liquids were seen in the stomach. Upon retroflexion, no lesions were seen in the cardia. There was some coating of the mucosa with bilious material. However, large amount of bile was not seen. The pylorus was erythematous, but otherwise unremarkable. There was patchy erythema in the duodenal bulb, but the mucosa was intact without ulcers or erosions. The postbulbar duodenal sweep done at the third portion was unremarkable. We were concerned that this patient has significant ischemia. There was no evidence of ulceration or erosive changes to suggest significant mucosal ischemia at this time. At that point, the scope was slowly withdrawn and careful circumferential views confirmed the above finding. The patient has been on anticoagulation and thus biopsies were not done today. Scope was withdrawn. The patient tolerated the procedure well. DISPOSITION: I do not identify any specific abnormalities to explain her symptoms. However, this does not entirely exclude gastroparesis, which may be fact as well. She is to have a mesenteric angiogram tomorrow to evaluate mesenteric ischemia. We will treat her with a PPI at this point in time. Also, add sucralfate since there was some bile in the stomach. <ELECTRONICALLY SIGNED> By: Jw Wells MD 12/30/19 1609 0946 1200 Jw Wells MD /nt
--- NOTE | 2019-12-30 16:40 | NUR ---
ASSESSMENT CHARTED. PT ALERT AND ORIENTED. VSS. HAD CARDIAC CATH THIS AM WITH NO INTERVENTION. RIGHT GROIN INCISION C/D/I. NO HEMATOMA NOTED. WILL CONTINUE TO MONITOR.
[2019-12-31 04:45] VITALS: BP 130/80
--- NOTE | 2019-12-31 04:59 | NUR ---
ASSUMED PT CARE AT 1900. PT IS ALERT AND ORIENTED WITH NO SIGN OF DISTRESS NOTED IN PT. PT IS STABLE AND GROIN SITE IS INTACT. NO SIGN OF BLEEDING, BRUISING OR HEMATOMA. ASSESSMENT COMPLETED AND DOCUMENTED. FALL PRECAUTION IN PLACE. DENIES ANY PAIN. SCHEDULED MEDS ADMINISTERED TO PT. CONTINUE TO MONITOR. DENIES ANY FURTHER NEEDS AT THIS TIME.
[2019-12-31 05:57] LABS: ABSOLUTE NEUTROPHILS 3.2 thou/uL (1.4-8.2); BASOPHILS 0.7 % (0.0-2.0); EOSINOPHILS 2.2 % (0.0-3.0); HEMATOCRIT 45.2 % (37.0-47.0); HEMOGLOBIN 14.9 gm/dL (12.0-15.0); LYMPHOCYTES 27.1 % (24.0-44.0); MCH 29.6 pg (26.0-34.0); MCHC 33.1 g/dL (28.0-37.0); MCV 89.7 fL (80.0-100.0); MONOCYTES 7.1 % (1.0-8.0); PLATELET COUNT 153 thou/uL (150-400); POLYS 62.9 % (36.0-66.0); RBC 5.04 mil/uL (4.20-5.00); RDW 16.2 % (10.5-14.5)
[2019-12-31 06:17] LABS: ALBUMIN 2.8 g/dL (3.4-5.0); CALCIUM 8.6 mg/dL (8.5-10.1); CREATININE 0.7 mg/dL (0.6-1.0); MAGNESIUM 1.5 mg/dL (1.8-2.4); PHOSPHORUS 2.2 mg/dL (2.5-4.9); POTASSIUM 3.5 mmol/L (3.5-5.1); TOTAL BILIRUBIN 0.3 mg/dL (<0.1-1.0)
[2019-12-31 08:12] VITALS: BP 131/63
[2019-12-31 08:55] VITALS: BP 131/63
[2019-12-31] MEDS ORDERED: CARAFATE 1 GM TA1 G1 PO (10:19)
[2019-12-31] MEDS ORDERED: BENICAR20 MG PO (10:19)
--- NOTE | 2019-12-31 13:29 | NUR ---
ASSESSMENT CHARTED. PT ALERT AND ORIENTED. VSS. RECEIVED PRN PAIN MED FOR MONTOYA. SEEN BY DR. KINGSTON. ORDERS GIVEN TO DISCHARGE PT TO HOME. DISCHARGE INSTRUCTIONS GIVEN TO PT. PT VERBERLISED UNDERSTANDING.
== END 2019-12-31 13:32 | disposition home or self-care (01) | DRG 391 ==
LOC: ER 15:33 → EROBS 19:15 → 2N 19:15
PROVIDERS: Internal Medicine; Nurse Practitioner Family; Physician Assistant; ADMIT Hospitalist
PROC: 0DJ08ZZ Inspection of Upper Intestinal Tract, Via Natural or Artificial Opening Endoscopic (ICD-10-PCS; principal; 2019-12-29)
PROC: B4181ZZ Fluoroscopy of Bilateral Renal Arteries using Low Osmolar Contrast (ICD-10-PCS; 2019-12-30)
PROC: B41F1ZZ Fluoroscopy of Right Lower Extremity Arteries using Low Osmolar Contrast (ICD-10-PCS; 2019-12-30)
PROC: B4151ZZ Fluoroscopy of Inferior Mesenteric Artery using Low Osmolar Contrast (ICD-10-PCS; 2019-12-30)
PROC: B4141ZZ Fluoroscopy of Superior Mesenteric Artery using Low Osmolar Contrast (ICD-10-PCS; 2019-12-30)
PROC: B41G1ZZ Fluoroscopy of Left Lower Extremity Arteries using Low Osmolar Contrast (ICD-10-PCS; 2019-12-30)
DX: K29.70 Gastritis, unspecified, without bleeding (principal); E43 Unspecified severe protein-calorie malnutrition; I69.354 Hemiplegia and hemiparesis following cerebral infarction affecting left non-dominant side; Z68.43 Body mass index [BMI] 50.0-59.9, adult; N17.9 Acute kidney failure, unspecified; K55.1 Chronic vascular disorders of intestine; F17.210 Nicotine dependence, cigarettes, uncomplicated; I25.10 Atherosclerotic heart disease of native coronary artery without angina pectoris; E78.00 Pure hypercholesterolemia, unspecified; E87.6 Hypokalemia; E83.42 Hypomagnesemia; I10 Essential (primary) hypertension; E78.5 Hyperlipidemia, unspecified; J44.9 Chronic obstructive pulmonary disease, unspecified; K21.9 Gastro-esophageal reflux disease without esophagitis; E11.51 Type 2 diabetes mellitus with diabetic peripheral angiopathy without gangrene; M19.90 Unspecified osteoarthritis, unspecified site; E66.9 Obesity, unspecified; K44.9 Diaphragmatic hernia without obstruction or gangrene; K29.80 Duodenitis without bleeding; I77.89 Other specified disorders of arteries and arterioles; G47.00 Insomnia, unspecified; E86.0 Dehydration; I48.0 Paroxysmal atrial fibrillation; I70.1 Atherosclerosis of renal artery; Z79.01 Long term (current) use of anticoagulants; Z90.49 Acquired absence of other specified parts of digestive tract; Z90.710 Acquired absence of both cervix and uterus; Z95.5 Presence of coronary angioplasty implant and graft; Z79.84 Long term (current) use of oral hypoglycemic drugs; Z79.4 Long term (current) use of insulin; Z79.899 Other long term (current) drug therapy; Z88.1 Allergy status to other antibiotic agents; Z88.0 Allergy status to penicillin; Z88.8 Allergy status to other drugs, medicaments and biological substances; Z98.49 Cataract extraction status, unspecified eye; Z82.49 Family history of ischemic heart disease and other diseases of the circulatory system
CPT/HCPCS: 10081; 62110; 62900; 70005

== ENCOUNTER → 2020-01-31 | Outpatient (CLI) | payer OTHER ==
[~2020-01-31] MED LIST changes: +BENICAR20 MG PO; +CARAFATE 1 GM TA1 G1 PO; +CARTIA XT120 M1 PO; +VALSARTAN-HCTZ1 EAC2 PO
== END ==
LOC: SJCVCIMAG 08:18
DX: K55.1 Chronic vascular disorders of intestine (principal); I25.10 Atherosclerotic heart disease of native coronary artery without angina pectoris; J44.9 Chronic obstructive pulmonary disease, unspecified; I48.0 Paroxysmal atrial fibrillation; I27.20 Pulmonary hypertension, unspecified; I10 Essential (primary) hypertension; E78.5 Hyperlipidemia, unspecified; E11.9 Type 2 diabetes mellitus without complications; E78.00 Pure hypercholesterolemia, unspecified; I73.9 Peripheral vascular disease, unspecified; F17.210 Nicotine dependence, cigarettes, uncomplicated; Z79.899 Other long term (current) drug therapy

== ENCOUNTER → 2020-04-23 | Outpatient (CLI) | payer OTHER | LOC: SJCVCIMAG 09:17 | PROVIDERS: ATTEND Internal Medicine Cardiovascular Disease | DX: I48.91 Unspecified atrial fibrillation (principal); I25.10 Atherosclerotic heart disease of native coronary artery without angina pectoris; I10 Essential (primary) hypertension; E78.5 Hyperlipidemia, unspecified; J44.9 Chronic obstructive pulmonary disease, unspecified; E11.9 Type 2 diabetes mellitus without complications; F17.200 Nicotine dependence, unspecified, uncomplicated; Z79.4 Long term (current) use of insulin; Z79.899 Other long term (current) drug therapy; Z88.8 Allergy status to other drugs, medicaments and biological substances ==